=== PATIENT | male | born 1970 | race Caucasian/White ===

== ENCOUNTER 2024-02-26 12:47 | Emergency (ER) | payer OTHER, SELFPAY ==
[2024-02-26] VITALS (48 sets, daily range): BP systolic 97–132; BP diastolic 53–92; PULSE 42–93; RESP 20; TEMP 36.5; O2SAT 89–100; BMI 24.2
--- NOTE | 2024-02-26 13:13 | CRLHL7_ITS ---
For Patients: As a result of the Century Cures Act, medical imaging exams and procedure reports are released immediately into your electronic medical record. You may view this report before your referring provider. If you have questions, please contact your health care provider. INDICATION: Headache, confusion. TECHNIQUE: CTA head with contrast bolus tracking, 3D angiographic rendering using maximum intensity projection (MIP) and images permanently archived. FINDINGS: There is normal opacification of the intracranial vasculature. There is no large vessel occlusion. No aneurysm is identified. IMPRESSION: Unremarkable head CTA. Please note that all CT scans at this facility use dose modulation, iterative reconstruction, and/or weight-based dosing when appropriate to reduce radiation dose to as low as reasonably achievable. Dictated by Song Guan MD @ 02/27/2024 5:52:48 AM (Electronically Signed)
--- NOTE | 2024-02-26 13:14 | CRLHL7_ITS ---
For Patients: As a result of the Century Cures Act, medical imaging exams and procedure reports are released immediately into your electronic medical record. You may view this report before your referring provider. If you have questions, please contact your health care provider. INDICATION: Headache. Confusion. COMPARISON: None available. TECHNIQUE: CT of the head without intravenous contrast. Please note that all CT scans at this facility use dose modulation, iterative reconstruction, and/or weight-based dosing when appropriate to reduce radiation dose to as low as reasonably achievable. FINDINGS: There is a subtle mass at the corticomedullary junction of the left inferior parietal lobule measuring approximately 2.4 cm transverse by 2.8 cm AP by 2.4 cm craniocaudad. This finding is associated with extensive associated vasogenic edema involving the left parieto-occipital lobes with positive mass effect (sulcal effacement). Minimal rightward midline shift of 2 mm. No significant associated enhancement of this lesion is seen on the subsequent CT angiogram of the head and neck. There is a 2nd lesion in the left centrum semiovale isoattenuating to simmons matter measuring approximately 10 mm in greatest axial dimension (5; 39). A 3rd lesion measuring approximately 11 mm in greatest axial dimension with associated vasogenic edema is noted at the corticomedullary junction of the right temporal lobe (5; 27). Incidental findings include mucosal thickening of the right frontal recess and bilateral maxillary sinuses. Leftward deviated nasal septum. Large bilateral anterior ethmoid Jacoby air cells. IMPRESSION: Multiple (3) intra-axial lesions representing malignant neoplastic disease until proven otherwise including a dominant left parietal mass with significant associated surrounding vasogenic edema and mass effect (2 mm rightward midline shift). No associated hemorrhage. No acute infarct. MRI of the brain with intravenous contrast is recommended for further characterization. Discussed with Dr. Thomas at 2:19 p.m. 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 Please note that all CT scans at this facility use dose modulation, iterative reconstruction, and/or weight-based dosing when appropriate to reduce radiation dose to as low as reasonably achievable. Dictated by Ángel Coker MD @ 02/26/2024 2:26:51 PM (Electronically Signed)
[2024-02-26 13:34] LABS: Basophils Percent Auto 0.3 % (0.0-3.0); Eosinophils Percent Auto 0.1 % (0.0-7.0); Hematocrit 39.1 % (37.0-53.0); Hemoglobin* 12.9 gm/dL (13.5-17.5); Immature Granulocytes Pct Auto 0.1 %; Lymphocytes Percent Auto 12.5 % (20-44); Mean Corpuscular HGB Conc 33 gm/dL (32-36); Mean Corpuscular Hemoglobin 30 pg (26-34); Mean Corpuscular Volume 92 fL (80-100); Monocytes Percent Auto 7.4 % (0.0-11.0); Neutrophils Percent Auto 79.6 % (42.0-72.0); Platelet Count* 339 K/uL (140-440); Red Blood Count 4.24 m/uL (4.30-5.90); White Blood Count* 14.74 K/uL (4.50-11.00)
[2024-02-26 13:38] LABS: Slide Review Reflex No
--- NOTE | 2024-02-26 13:40 | ED.GENADULT ---
HPI - General Adult General Date Seen: 02/26/24 <Rima Gottlieb MD - Last Filed: 03/06/24 16:30> Chief complaint: Altered Mental Status <Riam Gottlieb MD - Last Filed: 03/06/24 16:30> Stated complaint: Dizziness, headache, confusion <Rima Gottlieb MD - Last Filed: 03/06/24 16:30> Time Seen by Provider: 02/26/24 12:49 <Rima Gottlieb MD - Last Filed: 03/06/24 16:30> History of Present Illness HPI narrative: Patient is a 53-year-old male here with his son for evaluation of head pressure and confusion. He notes headache for perhaps 3 or 4 days, says it waxes and wanes but has never been completely gone. He has had nausea without vomiting, headache is perhaps a little more on the left side than the right, he has attributed this to possible sinus infection because the last time he had a headache it was a sinus infection. He presented to urgent care 1st and was referred here due to some confusion. Some questions he seems to answer kind of slowly, his son notes that he was not able to remember the alarm code for his home, was not able to tell him the date or his age at urgent care which is very unusual for him. He does note some visual symptoms a couple of days ago which he says a resolved, initially said that was double vision, then said he was not quite sure, he could not remember. He has felt a little bit dizzy, no falls. He has not been to a doctor in years but denies any prior medical history. He smokes cigarettes, does smoke marijuana including age day. Denies alcohol use. No prescription medications. <Rima Gottlieb MD - Last Filed: 03/06/24 16:30> Related Data Home medications: Home Medications ?Medication ?Instructions ?Recorded ?Confirmed No Known Home Medications 02/26/24 02/26/24 <Rima Gottlieb MD - Last Filed: 03/06/24 16:30> Allergies/adverse reactions: Allergies Allergy/AdvReac Type Severity Reaction Status Date / Time No Known Drug Allergies Allergy Verified 02/26/24 13:59 <Rima Gottlieb MD - Last Filed: 03/06/24 16:30> Review of Systems Status of ROS: Reports: 10 or more systems reviewed and unremarkable except as noted in History and below <Rima Gottlieb MD - Last Filed: 03/06/24 16:30> [facility] Social History: Social History Smoking Status: Current every day smoker What tobacco products do you use: cigarettes Do you use any of these nicotine containing products: None Second hand tobacco smoke exposure: No Non-prescribed substance use: marijuana (any form) <Rima Gottlieb MD - Last Filed: 03/06/24 16:30> Exam Narrative: Exam Narrative: Vital signs reviewed In general, alert, nontoxic middle-age male. Head: Normocephalic, atraumatic. Eyes: Sclera clear. Pupils equal and reactive. Extraocular movements are full, no nystagmus. ENT: Mucous membranes moist. Tongue is midline, throat normal. Neck: Supple without adenopathy. No meningeal signs. Heart: Regular rate and rhythm without murmur. Lungs: Clear. No increased work of breathing, crackles or wheezes. Abdomen: Soft, nontender to palpation. Extremities: Well perfused, pulses intact. No significant edema. Neurologic: Alert, conversant. Speech is sometimes fluent, sometimes he takes a long time to find the word he wants and sometimes is not able to come up with it. He is oriented to person and place, was not able to tell me his age or the year. Was able to tell me his son's name. Face is symmetric. Moves all extremities equally. Tried to assess for ataxia, he was not able to seemingly follow the command to touch the tip of his nose, he would simply wiggle his index finger without moving it toward his face. I had him try with his eyes open, and then he pulled his hand toward the middle of his chest. Romberg negative. Gait slightly unsteady Skin: Warm, dry well perfused. Affect: Flat. <Rima Gottlieb MD - Last Filed: 03/06/24 16:30> Const: Vital Signs, click to edit/add: Vital Signs - 24 hr 02/26/24 12:52 02/26/24 13:51 02/26/24 14:00 Temperature 97.7 F Pulse Rate 75 Pulse Rate [Pulse Oximeter] 78 Respiratory Rate 20 Blood Pressure 120/84 Blood Pressure [Ri ght Upper Arm] 109/69 Pulse Oximetry 99 89 99 Oxygen Delivery Me thod Room Air 02/26/24 14:01 02/26/24 14:02 02/26/24 14:03 Temperature Pulse Rate 84 77 73 Pulse Rate [Pulse Oximeter] Respiratory Rate Blood Pressure 112/68 Blood Pressure [Ri ght Upper Arm] Pulse Oximetry 95 99 98 Oxygen Delivery Me thod 02/26/24 14:17 02/26/24 15:58 02/26/24 15:59 Temperature Pulse Rate 82 80 Pulse Rate [Pulse Oximeter] Respiratory Rate Blood Pressure 120/79 111/67 Blood Pressure [Ri ght Upper Arm] Pulse Oximetry 100 98 Oxygen Delivery Me thod 02/26/24 16:00 02/26/24 16:10 02/26/24 16:15 Temperature Pulse Rate 66 85 93 Pulse Rate [Pulse Oximeter] Respiratory Rate Blood Pressure 108/67 Blood Pressure [Ri ght Upper Arm] Pulse Oximetry 98 98 97 Oxygen Delivery Me thod 02/26/24 16:16 02/26/24 16:17 02/26/24 16:30 Temperature Pulse Rate 71 72 75 Pulse Rate [Pulse Oximeter] Respiratory Rate Blood Pressure 112/74 Blood Pressure [Ri ght Upper Arm] Pulse Oximetry 97 96 94 Oxygen Delivery Me thod 02/26/24 16:31 02/26/24 16:47 02/26/24 17:06 Temperature Pulse Rate 68 57 L Pulse Rate [Pulse Oximeter] Respiratory Rate Blood Pressure 117/74 108/70 Blood Pressure [Ri ght Upper Arm] Pulse Oximetry 95 100 Oxygen Delivery Me thod 02/26/24 17:07 02/26/24 17:07 02/26/24 17:15 Temperature Pulse Rate 56 L 56 L 49 L Pulse Rate [Pulse Oximeter] Respiratory Rate Blood Pressure 132/92 H 132/92 H Blood Pressure [Ri ght Upper Arm] Pulse Oximetry 99 99 89 Oxygen Delivery Me thod 02/26/24 17:17 02/26/24 17:30 02/26/24 17:32 Temperature Pulse Rate 51 L 52 L 46 L Pulse Rate [Pulse Oximeter] Respiratory Rate Blood Pressure 118/68 97/53 L Blood Pressure [Ri ght Upper Arm] Pulse Oximetry 91 93 91 Oxygen Delivery Me thod 02/26/24 17:47 02/26/24 18:01 02/26/24 18:03 Temperature Pulse Rate 47 L 42 L Pulse Rate [Pulse Oximeter] Respiratory Rate Blood Pressure 108/67 105/59 L Blood Pressure [Ri ght Upper Arm] Pulse Oximetry 96 94 Oxygen Delivery Me thod 02/26/24 18:15 02/26/24 18:17 02/26/24 18:32 Temperature Pulse Rate 43 L 45 L Pulse Rate [Pulse Oximeter] Respiratory Rate Blood Pressure 108/59 L 113/72 Blood Pressure [Ri ght Upper Arm] Pulse Oximetry 93 94 Oxygen Delivery Me thod 02/26/24 18:37 02/26/24 18:45 02/26/24 18:47 Temperature Pulse Rate 47 L 46 L 49 L Pulse Rate [Pulse Oximeter] Respiratory Rate Blood Pressure 112/76 Blood Pressure [Ri ght Upper Arm] Pulse Oximetry 97 96 96 Oxygen Delivery Me thod 02/26/24 19:01 02/26/24 19:02 02/26/24 19:15 Temperature Pulse Rate 42 L 48 L 48 L Pulse Rate [Pulse Oximeter] Respiratory Rate Blood Pressure 113/76 Blood Pressure [Ri ght Upper Arm] Pulse Oximetry 99 94 96 Oxygen Delivery Me thod 02/26/24 19:17 02/26/24 19:30 02/26/24 19:32 Temperature Pulse Rate 45 L 47 L 49 L Pulse Rate [Pulse Oximeter] Respiratory Rate Blood Pressure 105/75 110/66 Blood Pressure [Ri ght Upper Arm] Pulse Oximetry 94 96 95 Oxygen Delivery Me thod 02/26/24 19:45 02/26/24 19:47 Temperature Pulse Rate 49 L 49 L Pulse Rate [Pulse Oximeter] Respiratory Rate Blood Pressure 109/73 Blood Pressure [Ri ght Upper Arm] Pulse Oximetry 96 94 Oxygen Delivery Me thod <Rima Gottlieb MD - Last Filed: 03/06/24 16:30> Vital Signs, click to edit/add: Vital Signs - 24 hr 02/26/24 12:52 02/26/24 13:51 02/26/24 14:00 Temperature 97.7 F Pulse Rate 75 Pulse Rate [Pulse Oximeter] 78 Respiratory Rate 20 Blood Pressure 120/84 Blood Pressure [Ri ght Upper Arm] 109/69 Pulse Oximetry 99 89 99 Oxygen Delivery Me thod Room Air 02/26/24 14:01 02/26/24 14:02 02/26/24 14:03 Temperature Pulse Rate 84 77 73 Pulse Rate [Pulse Oximeter] Respiratory Rate Blood Pressure 112/68 Blood Pressure [Ri ght Upper Arm] Pulse Oximetry 95 99 98 Oxygen Delivery Me thod 02/26/24 14:17 02/26/24 15:58 02/26/24 15:59 Temperature Pulse Rate 82 80 Pulse Rate [Pulse Oximeter] Respiratory Rate Blood Pressure 120/79 111/67 Blood Pressure [Ri ght Upper Arm] Pulse Oximetry 100 98 Oxygen Delivery Me thod 02/26/24 16:00 02/26/24 16:10 02/26/24 16:15 Temperature Pulse Rate 66 85 93 Pulse Rate [Pulse Oximeter] Respiratory Rate Blood Pressure 108/67 Blood Pressure [Ri ght Upper Arm] Pulse Oximetry 98 98 97 Oxygen Delivery Me thod 02/26/24 16:16 02/26/24 16:17 02/26/24 16:30 Temperature Pulse Rate 71 72 75 Pulse Rate [Pulse Oximeter] Respiratory Rate Blood Pressure 112/74 Blood Pressure [Ri ght Upper Arm] Pulse Oximetry 97 96 94 Oxygen Delivery Me thod 02/26/24 16:31 02/26/24 16:47 02/26/24 17:06 Temperature Pulse Rate 68 57 L Pulse Rate [Pulse Oximeter] Respiratory Rate Blood Pressure 117/74 108/70 Blood Pressure [Ri ght Upper Arm] Pulse Oximetry 95 100 Oxygen Delivery Me thod 02/26/24 17:07 02/26/24 17:07 02/26/24 17:15 Temperature Pulse Rate 56 L 56 L 49 L Pulse Rate [Pulse Oximeter] Respiratory Rate Blood Pressure 132/92 H 132/92 H Blood Pressure [Ri ght Upper Arm] Pulse Oximetry 99 99 89 Oxygen Delivery Me thod 02/26/24 17:17 02/26/24 17:30 02/26/24 17:32 Temperature Pulse Rate 51 L 52 L 46 L Pulse Rate [Pulse Oximeter] Respiratory Rate Blood Pressure 118/68 97/53 L Blood Pressure [Ri ght Upper Arm] Pulse Oximetry 91 93 91 Oxygen Delivery Me thod 02/26/24 17:47 02/26/24 18:01 02/26/24 18:03 Temperature Pulse Rate 47 L 42 L Pulse Rate [Pulse Oximeter] Respiratory Rate Blood Pressure 108/67 105/59 L Blood Pressure [Ri ght Upper Arm] Pulse Oximetry 96 94 Oxygen Delivery Me thod 02/26/24 18:15 02/26/24 18:17 02/26/24 18:32 Temperature Pulse Rate 43 L 45 L Pulse Rate [Pulse Oximeter] Respiratory Rate Blood Pressure 108/59 L 113/72 Blood Pressure [Ri ght Upper Arm] Pulse Oximetry 93 94 Oxygen Delivery Me thod 02/26/24 18:37 02/26/24 18:45 02/26/24 18:47 Temperature Pulse Rate 47 L 46 L 49 L Pulse Rate [Pulse Oximeter] Respiratory Rate Blood Pressure 112/76 Blood Pressure [Ri ght Upper Arm] Pulse Oximetry 97 96 96 Oxygen Delivery Me thod 02/26/24 19:01 02/26/24 19:02 02/26/24 19:15 Temperature Pulse Rate 42 L 48 L 48 L Pulse Rate [Pulse Oximeter] Respiratory Rate Blood Pressure 113/76 Blood Pressure [Ri ght Upper Arm] Pulse Oximetry 99 94 96 Oxygen Delivery Me thod 02/26/24 19:17 02/26/24 19:30 02/26/24 19:32 Temperature Pulse Rate 45 L 47 L 49 L Pulse Rate [Pulse Oximeter] Respiratory Rate Blood Pressure 105/75 110/66 Blood Pressure [Ri ght Upper Arm] Pulse Oximetry 94 96 95 Oxygen Delivery Me thod 02/26/24 19:45 02/26/24 19:47 Temperature Pulse Rate 49 L 49 L Pulse Rate [Pulse Oximeter] Respiratory Rate Blood Pressure 109/73 Blood Pressure [Ri ght Upper Arm] Pulse Oximetry 96 94 Oxygen Delivery Me thod <Ivan Barrios, DO - Last Filed: 02/26/24 20:10> Course Course ED Course: Patient presents with new onset he headache of a few days duration with some subtle findings on neurologic exam. Diagnostic considerations would include intracranial hemorrhage, mass, stroke, infection. Doubt sinus infection as an explanation for his presentation. Labs reviewed. Pertinent findings include a white blood cell count of 14.7, sed rate of 62, CRP of 2.3. CT of the head by my review showed what appeared to be edema, little bit of mass effect in the left occipital region. CT of the head read by radiology as showing edema, mass suspected, MRI recommended. The MR angiogram of the head and neck was read by Radiology. Vasculature looks unremarkable, they do note a nodule in the left upper lobe, follow-up CT of the chest required, not done here today. MRI of the brain read by Radiology as showing 4 discrete areas, rim enhancing, consistent with abscess. He did note increasing headache while here, was initially given morphine and Zofran. Did not have a lot of relief with that so I have given him Dilaudid 1 mg IV. All labs reviewed, remaining labs are unremarkable. Initial phone call was to Neurosurgery with [facility], they recommended transfer, did not recommend delay for bed wait list, [facility] did not have any beds. I called [facility], [facility] as well as [facility]. [facility] reviewed but declined as they did not have room on their neurology service. [facility] does seemingly have a bed, case discussed with neurosurgery team there. Images being reviewed, if accepted there will arrange for transport on assignment of bed. In the meantime, per Annamarie recommendations, I have not instituted antibiotics. <Rima Gottlieb MD - Last Filed: 03/06/24 16:30> Vital Signs Vital signs: Initial Vital Signs Temperature 97.7 F 02/26/24 12:52 Temperature Source Temporal Artery Scan 02/26/24 12:52 Pulse Rate 78 02/26/24 12:52 Respiratory Rate 02/26/24 12:52 Blood Pressure 109/69 02/26/24 12:52 Blood Pressure Mean 82 02/26/24 12:52 Blood Pressure Position Sitting 02/26/24 12:52 Pulse Oximetry 99 02/26/24 12:52 Oxygen Delivery Method Room Air 02/26/24 12:52 Vital Signs Temperature 97.7 F 02/26/24 12:52 Pulse Rate 78 02/26/24 12:52 Respiratory Rate 20 02/26/24 12:52 Blood Pressure 109/69 02/26/24 12:52 Pulse Oximetry 99 02/26/24 12:52 Oxygen Delivery Method Room Air 02/26/24 12:52 Temperature 97.7 F 02/26/24 12:52 Pulse Rate 51 L 02/26/24 20:32 Respiratory Rate 20 02/26/24 12:52 Blood Pressure 110/74 02/26/24 20:32 Pulse Oximetry 96 02/26/24 20:32 Oxygen Delivery Method Room Air 02/26/24 12:52 <Rima Gottlieb MD - Last Filed: 03/06/24 16:30> Initial Vital Signs Temperature 97.7 F 02/26/24 12:52 Temperature Source Temporal Artery Scan 02/26/24 12:52 Pulse Rate 78 02/26/24 12:52 Respiratory Rate 20 02/26/24 12:52 Blood Pressure 109/69 02/26/24 12:52 Blood Pressure Mean 82 02/26/24 12:52 Blood Pressure Position Sitting 02/26/24 12:52 Pulse Oximetry 99 02/26/24 12:52 Oxygen Delivery Method Room Air 02/26/24 12:52 Vital Signs Temperature 97.7 F 02/26/24 12:52 Pulse Rate 78 02/26/24 12:52 Respiratory Rate 20 02/26/24 12:52 Blood Pressure 109/69 02/26/24 12:52 Pulse Oximetry 99 02/26/24 12:52 Oxygen Delivery Method Room Air 02/26/24 12:52 Temperature 97.7 F 02/26/24 12:52 Pulse Rate 51 L 02/26/24 20:32 Respiratory Rate 20 02/26/24 12:52 Blood Pressure 110/74 02/26/24 20:32 Pulse Oximetry 96 02/26/24 20:32 Oxygen Delivery Method Room Air 02/26/24 12:52 <Ivan Barrios DO - Last Filed: 02/26/24 20:10> Medications Administered Medications: Discontinued Medications Generic Name Dose Route Start Last Admin Trade Name Opal PRN Reason Stop Dose Admin Hydromorphone HCl 1 mg 02/26/24 16:57 02/26/24 17:05 Hydromorphone 0.5 Mg/0.5 Ml Inj IVP 02/26/24 16:58 1 mg ONCE ONE Administration Hydromorphone HCl 0.5 mg 02/26/24 20:39 02/26/24 20:43 Hydromorphone 0.5 Mg/0.5 Ml Inj IVP 02/26/24 20:40 0.5 mg ONCE ONE Administration Morphine Sulfate 4 mg 02/26/24 15:09 02/26/24 16:07 Morphine 4 Mg/Ml Inj IVP 02/26/24 15:10 4 mg ONCE ONE Administration Ondansetron HCl 4 mg 02/26/24 15:09 02/26/24 16:05 Ondansetron 2 Mg/Ml Inj IVP 02/26/24 15:10 4 mg ONCE ONE Administration <Rima Gottlieb MD - Last Filed: 03/06/24 16:30> Discontinued Medications Generic Name Dose Route Start Last Admin Trade Name Opal PRN Reason Stop Dose Admin Hydromorphone HCl 1 mg 02/26/24 16:57 02/26/24 17:05 Hydromorphone 0.5 Mg/0.5 Ml Inj IVP 02/26/24 16:58 1 mg ONCE ONE Administration Hydromorphone HCl 0.5 mg 02/26/24 20:39 02/26/24 20:43 Hydromorphone 0.5 Mg/0.5 Ml Inj IVP 02/26/24 20:40 0.5 mg ONCE ONE Administration Morphine Sulfate 4 mg 02/26/24 15:09 02/26/24 16:07 Morphine 4 Mg/Ml Inj IVP 02/26/24 15:10 4 mg ONCE ONE Administration Ondansetron HCl 4 mg 02/26/24 15:09 02/26/24 16:05 Ondansetron 2 Mg/Ml Inj IVP 02/26/24 15:10 4 mg ONCE ONE Administration <Ivan Barrios DO - Last Filed: 02/26/24 20:10> Medical Decision Making MDM Narrative Medical decision making narrative: Patient was signed out to me pending acceptance by [facility]. I spoke to Dr. Aguirre and she stepped the patient for admission. <Ivan Barrios DO - Last Filed: 02/26/24 20:10> Lab Data Labs: Lab Results 02/26/24 02/26/24 Range/Units 13:14 Unknown WBC 14.74 H (4.50-11.00) K/uL RBC 4.24 L (4.30-5.90) m/uL Hgb 12.9 L (13.5-17.5) gm/dL Hct 39.1 (37.0-53.0) % MCV 92 (80-100) fL MCH 30 (26-34) pg MCHC 33 (32-36) gm/dL RDW Coeff of Patricia 13.0 (11.5-15.5) % Plt Count 339 (140-440) K/uL Neut % (Auto) 79.6 H (42.0-72.0) % Lymph % (Auto) 12.5 L (20-44) % [place] % (Auto) 7.4 (0.0-11.0) % Eos % (Auto) 0.1 (0.0-7.0) % Baso % (Auto) 0.3 (0.0-3.0) % Neut # (Auto) 11.70 H (1.7-7.0) K/uL Lymph # (Auto) 1.80 (0.90-2.90) K/uL [place] # (Auto) 1.10 H (0.00-0.90) K/UL Eos # (Auto) 0.00 (0.00-0.50) K/uL Baso # (Auto) 0.00 (0.00-0.30) K/uL Abs Immat Gran (auto) 0.00 (0.00-0.30) K/uL Imm/Tot Granulo (auto) 0.1 % ESR 62 H (2-15) mm/hr INR 1.01 (0.91-1.10) APTT 35 H (23-33) Seconds D-Dimer Quant (PE/DVT) 0.44 (0.00-0.50) ug/ml Sodium 136 (135-149) mmol/L Potassium 4.2 (3.6-5.1) mmol/L Chloride 100 (96-114) mmol/L Carbon Dioxide 28 (20-32) mmol/L Anion Gap 8 (7-15) mEq/L BUN 10 (7-30) mg/dL Creatinine 0.7 (0.5-1.5) mg/dL Estimated Creat Clear 107.60 Estimated GFR 109 ml/min Glucose 106 (60-115) mg/dL Calcium 9.1 (8.4-10.6) mg/dL Magnesium 2.0 (1.5-2.6) mg/dL Total Bilirubin 0.4 (0.1-1.5) mg/dL Direct Bilirubin 0.3 (0.0-0.5) mg/dL AST 20 (12-35) U/L ALT 16 (4-50) U/L Alkaline Phosphatase 65 (40-150) U/L C-Reactive Protein 2.3 H (0.5-1.0) mg/dL Total Protein 7.7 (6.0-8.3) g/dL Albumin 3.9 (3.3-5.0) g/dL TSH 0.147 L (0.270-4.200) uIU/mL Free T4 1.79 (0.70-1.85) ng/dL <Rima Gottlieb MD - Last Filed: 03/06/24 16:30> Lab Results 02/26/24 02/26/24 Range/Units 13:14 Unknown WBC 14.74 H (4.50-11.00) K/uL RBC 4.24 L (4.30-5.90) m/uL Hgb 12.9 L (13.5-17.5) gm/dL Hct 39.1 (37.0-53.0) % MCV 92 (80-100) fL MCH 30 (26-34) pg MCHC 33 (32-36) gm/dL RDW Coeff of Patricia 13.0 (11.5-15.5) % Plt Count 339 (140-440) K/uL Neut % (Auto) 79.6 H (42.0-72.0) % Lymph % (Auto) 12.5 L (20-44) % [place] % (Auto) 7.4 (0.0-11.0) % Eos % (Auto) 0.1 (0.0-7.0) % Baso % (Auto) 0.3 (0.0-3.0) % Neut # (Auto) 11.70 H (1.7-7.0) K/uL Lymph # (Auto) 1.80 (0.90-2.90) K/uL [place] # (Auto) 1.10 H (0.00-0.90) K/UL Eos # (Auto) 0.00 (0.00-0.50) K/uL Baso # (Auto) 0.00 (0.00-0.30) K/uL Abs Immat Gran (auto) 0.00 (0.00-0.30) K/uL Imm/Tot Granulo (auto) 0.1 % ESR 62 H (2-15) mm/hr INR 1.01 (0.91-1.10) APTT 35 H (23-33) Seconds D-Dimer Quant (PE/DVT) 0.44 (0.00-0.50) ug/ml Sodium 136 (135-149) mmol/L Potassium 4.2 (3.6-5.1) mmol/L Chloride 100 (96-114) mmol/L Carbon Dioxide 28 (20-32) mmol/L Anion Gap 8 (7-15) mEq/L BUN 10 (7-30) mg/dL Creatinine 0.7 (0.5-1.5) mg/dL Estimated Creat Clear 107.60 Estimated GFR 109 ml/min Glucose 106 (60-115) mg/dL Calcium 9.1 (8.4-10.6) mg/dL Magnesium 2.0 (1.5-2.6) mg/dL Total Bilirubin 0.4 (0.1-1.5) mg/dL Direct Bilirubin 0.3 (0.0-0.5) mg/dL AST 20 (12-35) U/L ALT 16 (4-50) U/L Alkaline Phosphatase 65 (40-150) U/L C-Reactive Protein 2.3 H (0.5-1.0) mg/dL Total Protein 7.7 (6.0-8.3) g/dL Albumin 3.9 (3.3-5.0) g/dL TSH 0.147 L (0.270-4.200) uIU/mL Free T4 1.79 (0.70-1.85) ng/dL <Ivan Barrios DO - Last Filed: 02/26/24 20:10> Imaging Data CT scan - head: Attestation: I have reviewed the pertinent imaging results. <Rima Gottlieb MD - Last Filed: 03/06/24 16:30> Radiologist's impression: Patient: Priti Morales MR#: [id number] : 1970 Acct:[id number] Loc: ED Service Date: 02/26/[address]: Ordering Physician: Rima Gottlieb M.D. Date of Service: 02/26/24 Procedure(s): CT head/brain wo con Accession Number(s): [id number] cc: Rima Gottlieb M.D.; Provider,Not a Local~ For Patients: As a result of the 21st Century Cures Act, medical imaging exams and procedure reports are released immediately into your electronic medical record. You may view this report before your referring provider. If you have questions, please contact your health care provider. INDICATION: Headache. Confusion. COMPARISON: None available. TECHNIQUE: CT of the head without intravenous contrast. Please note that all CT scans at this facility use dose modulation, iterative reconstruction, and/or weight-based dosing when appropriate to reduce radiation dose to as low as reasonably achievable. FINDINGS: There is a subtle mass at the corticomedullary junction of the left inferior parietal lobule measuring approximately 2.4 cm transverse by 2.8 cm AP by 2.4 cm craniocaudad. This finding is associated with extensive associated vasogenic edema involving the left parieto-occipital lobes with positive mass effect (sulcal effacement). Minimal rightward midline shift of 2 mm. No significant associated enhancement of this lesion is seen on the subsequent CT angiogram of the head and neck. There is a 2nd lesion in the left centrum semiovale isoattenuating to simmons matter measuring approximately 10 mm in greatest axial dimension (5; 39). A 3rd lesion measuring approximately 11 mm in greatest axial dimension with associated vasogenic edema is noted at the corticomedullary junction of the right temporal lobe (5; 27). Incidental findings include mucosal thickening of the right frontal recess and bilateral maxillary sinuses. Leftward deviated nasal septum. Large bilateral anterior ethmoid Jacoby air cells. IMPRESSION: Multiple (3) intra-axial lesions representing malignant neoplastic disease until proven otherwise including a dominant left parietal mass with significant associated surrounding vasogenic edema and mass effect (2 mm rightward midline shift). No associated hemorrhage. No acute infarct. MRI of the brain with intravenous contrast is recommended for further characterization. Discussed with Dr. Gottlieb at 2:19 p.m. TECHNICAL SUPERVISOR. Please note that all CT scans at this facility use dose modulation, iterative reconstruction, and/or weight-based dosing when appropriate to reduce radiation dose to as low as reasonably achievable. Dictated by Ángel Coker MD @ 02/26/2024 2:26:51 PM <Rima Gottlieb MD - Last Filed: 03/06/24 16:30> CT angiogram head and neck: Attestation: I have reviewed the pertinent imaging results. <Rima Gottlieb MD - Last Filed: 03/06/24 16:30> Radiologist's impression: Patient: PRITI MORALES Facility: [facility] Site . Site : 1970 Study: CT-Head Angio 95CC ISOVUE 370-02/26/2024 1:57:41 PM Ordering Physician: Martha Abarac Preliminary Report: INDICATION: Headache. Confusion. COMPARISON: Same day noncontrast head CT. PRELIMINARY FINDINGS: 1. CTA HEAD: No intracranial large vessel occlusion. 2. CTA NECK: No cervical carotid or vertebral artery occlusion, significant stenosis or sign of dissection. 3. From the report of the preceding noncontrast CT of the head performed the same day: Multiple (3) intra-axial lesions representing malignant neoplastic disease until proven otherwise including a dominant left parietal mass with significant associated surrounding vasogenic edema and mass effect (2 mm rightward midline shift). No associated hemorrhage. No acute infarct. MRI of the brain with intravenous contrast is recommended for further characterization. 4. No significant enhancement is associated with these lesions on this CT angiogram. 5. 8 mm x 13 mm irregular juxtapleural left upper lobe nodule (8; 1003) with surrounding gland glass opacity. Neoplastic disease is included in the differential diagnosis for this finding. Management recommendations include PET-CT, according to Fleischner society guidelines. A form CT of the chest is recommended for further characterization which can be performed at a clinically appropriate time. Discussed with Dr. Gottlieb at 2:19 p.m. TECHNICAL SUPERVISOR. THIS IS A PRELIMINARY REPORT. FINAL REPORT TO BE ISSUED BY THE NEURORADIOLOGY SUBSPECIALITY SECTION OF THE DEPARTMENT. Dictated by Ángel Coker MD @ 02/26/2024 2:32:27 PM Read by: Ángel Coker MD @02/26/2024 2:32:38 PM <Rima Gottlieb MD - Last Filed: 03/06/24 16:30> MRI brain with without contrast: Attestation: I have reviewed the pertinent imaging results. <Rima Gottlieb MD - Last Filed: 03/06/24 16:30> Radiologist's impression: Patient: Priti Morales MR#: [id number] : 1970 Acct:[id number] Loc: ED Service Date: 02/26/[address]: Ordering Physician: Rima Gottlieb M.D. Date of Service: 02/26/24 Procedure(s): MR head/brain wo/w con Accession Number(s): [id number] cc: Rima Gottlieb M.D.; Provider,Not a Local~ For Patients: As a result of the Cures Act, medical imaging exams and procedure reports are released immediately into your electronic medical record. You may view this report before your referring provider. If you have questions, please contact your health care provider. Indication: Suspected left parietal mass Technique: Multiplanar, multisequence MRI of the brain obtained without and with contrast. A total of 14 mL of Dotarem IV contrast was administered. Comparison: Earlier same day CT head Findings: There are multiple rim-enhancing, diffusion-restricting collections within the bilateral cerebral hemispheres, 2 dominant collections measuring greater than 3 cm in the left occipital lobe, 2 smaller roughly 2 cm collections within the left occipital and right posterior temporal lobe, and the smaller collection at the left posterior frontal-parietal junction. There is confluent surrounding vasogenic edema, with diffuse left mid and posterior cerebral sulcal effacement, as well as partial effacement of the posterior left lateral ventricle, and mild rightward midline shift of 3-4 mm. No territorial infarct or T1 hyperintense hemorrhage. No evidence for obstructive hydrocephalus at this time. No herniation. Scattered paranasal sinus mucosal inflammatory changes. No mastoid effusion. Unremarkable orbits. Impression: 1. Multiple rim enhancing, diffusion restricting collections within the bilateral posterior cerebral hemispheres, most compatible with cerebral abscesses. Exam findings were discussed with Dr. Rima gottlieb at 4:43 p.m. on 02/26/2024. Dictated by Matilda Bellamy MD @ 02/26/2024 4:46:19 PM <Rima Gottlieb MD - Last Filed: 03/06/24 16:30> Discharge Plan Discharge Clinical Impression: Brain abscess <Rima Gottlieb MD - Last Filed: 03/06/24 16:30> Patient Disposition: Xfer Other <Rima Gottlieb MD - Last Filed: 03/06/24 16:30> Prescriptions: No Action No Known Home Medications <Rima Gottlieb MD - Last Filed: 03/06/24 16:30> Stand Alone Forms: MyHealth Info Instructions <Rima Gottlieb MD - Last Filed: 03/06/24 16:30>
--- NOTE | 2024-02-26 13:45 | CRLHL7_ITS ---
For Patients: As a result of the Century Cures Act, medical imaging exams and procedure reports are released immediately into your electronic medical record. You may view this report before your referring provider. If you have questions, please contact your health care provider. INDICATION: Headache, confusion. TECHNIQUE: CTA neck with contrast bolus tracking, 3D angiographic rendering using maximum intensity projection (MIP) and images permanently archived. FINDINGS: There is no significant carotid artery stenosis or dissection. There is no significant vertebral artery stenosis or dissection. The soft tissues of the neck are within normal limits. The cervical spine is in normal alignment. Degenerative changes are noted in the cervical spine. IMPRESSION: 1. No significant carotid or vertebral artery stenosis or dissection. 2. Per preliminary report: 3. From the report of the preceding noncontrast CT of the head performed the same day: Multiple (3) intra-axial lesions representing malignant neoplastic disease until proven otherwise including a dominant left parietal mass with significant associated surrounding vasogenic edema and mass effect (2 mm rightward midline shift). No associated hemorrhage. No acute infarct. MRI of the brain with intravenous contrast is recommended for further characterization. 4. No significant enhancement is associated with these lesions on this CT angiogram. 5. 8 mm x 13 mm irregular juxtapleural left upper lobe nodule (8; 1003) with surrounding gland glass opacity. Neoplastic disease is included in the differential diagnosis for this finding. Management recommendations include PET-CT, according to Fleischner society guidelines. A form CT of the chest is recommended for further characterization which can be performed at a clinically appropriate time. Discussed with Dr. Thomas at 2:19 p.m. [employer]. Please note that all CT scans at this facility use dose modulation, iterative reconstruction, and/or weight-based dosing when appropriate to reduce radiation dose to as low as reasonably achievable. Dictated by Song Guan MD @ 02/27/2024 5:55:02 AM (Electronically Signed)
[2024-02-26 13:54] LABS: Chloride* 100 mmol/L (96-114); Potassium* 4.2 mmol/L (3.6-5.1); Sodium* 136 mmol/L (135-149)
[2024-02-26 13:55] LABS: Albumin* 3.9 g/dL (3.3-5.0)
[2024-02-26 13:57] LABS: Anion Gap 8 mEq/L (7-15); Blood Urea Nitrogen* 10 mg/dL (7-30); Carbon Dioxide* 28 mmol/L (20-32); Creatinine* 0.7 mg/dL (0.5-1.5); Estimated Glomerular Filt Rate 109 ml/min; Glucose* 106 mg/dL (60-115)
[2024-02-26 13:58] LABS: Alanine Aminotransferase* 16 U/L (4-50); Alkaline Phosphatase* 65 U/L (40-150); Aspartate Amino Transferase* 20 U/L (12-35); Bilirubin Direct* 0.3 mg/dL (0.0-0.5); Bilirubin Total* 0.4 mg/dL (0.1-1.5); Calcium* 9.1 mg/dL (8.4-10.6); Total Protein* 7.7 g/dL (6.0-8.3)
[2024-02-26 14:00] LABS: C Reactive Protein* 2.3 mg/dL (0.5-1.0)
[2024-02-26 14:04] LABS: D Dimer Quantitative* 0.44 ug/ml (0.00-0.50)
[2024-02-26 14:22] LABS: Erythrocyte SedimentationRate* 62 mm/hr (2-15)
--- NOTE | 2024-02-26 14:22 | CRLHL7_ITS ---
For Patients: As a result of the Century Cures Act, medical imaging exams and procedure reports are released immediately into your electronic medical record. You may view this report before your referring provider. If you have questions, please contact your health care provider. Indication: Suspected left parietal mass Technique: Multiplanar, multisequence MRI of the brain obtained without and with contrast. A total of 14 mL of Dotarem IV contrast was administered. Comparison: Earlier same day CT head Findings: There are multiple rim-enhancing, diffusion-restricting collections within the bilateral cerebral hemispheres, 2 dominant collections measuring greater than 3 cm in the left occipital lobe, 2 smaller roughly 2 cm collections within the left occipital and right posterior temporal lobe, and the smaller collection at the left posterior frontal-parietal junction. There is confluent surrounding vasogenic edema, with diffuse left mid and posterior cerebral sulcal effacement, as well as partial effacement of the posterior left lateral ventricle, and mild rightward midline shift of 3-4 mm. No territorial infarct or T1 hyperintense hemorrhage. No evidence for obstructive hydrocephalus at this time. No herniation. Scattered paranasal sinus mucosal inflammatory changes. No mastoid effusion. Unremarkable orbits. Impression: 1. Multiple rim enhancing, diffusion restricting collections within the bilateral posterior cerebral hemispheres, most compatible with cerebral abscesses. Exam findings were discussed with Dr. Rima gottlieb at 4:43 p.m. on 02/26/2024. Dictated by Matilda Bellamy MD @ 02/26/2024 4:46:19 PM (Electronically Signed)
[2024-02-26 14:28] LABS: TSH With Reflex to FT4* 0.147 uIU/mL (0.270-4.200)
[2024-02-26] MEDS: ONDANSETRON 2 MG/ML inj 4 MG IVP (16:05)
[2024-02-26] MEDS: MORPHINE 4 MG/ML INJ IVP (16:07)
[2024-02-26 16:27] LABS: Free T4 Free Thyroxine* 1.79 ng/dL (0.70-1.85)
[2024-02-26] MEDS: HYDROmorphone 0.5 mg/0.5 ml inj 1 MG IVP (17:05)
[2024-02-26 17:32] LABS: INR 1.01 (0.91-1.10); Prothrombin Time 13.9 Seconds
[2024-02-26 17:33] LABS: Partial Thromboplastin Time* 35 Seconds (23-33)
[2024-02-26] MEDS: HYDROmorphone 0.5 mg/0.5 ml inj IVP (20:43)
== END 2024-02-26 20:59 | disposition other institution (70) ==
PROVIDERS: Emergency Medicine; Emergency Provider Student in an Organized Health Care Education/Training Program
DX: G06.0 Intracranial abscess and granuloma (principal)
CPT/HCPCS: 36415; 70450; 70496; 70498; 70553; 80048; 80076; 83735; 84439; 84443; 85025; 85379; 85610; 85651; 85730; 86140; 87040; 99284; 99285; A9575; J1171; J2270; J2405; Q9967

== ENCOUNTER 2024-02-26 20:37 | Outpatient (CLI) | payer OTHER, SELFPAY | END 2024-02-26 20:38 | disposition home or self-care (01) | LOC: AMB 03-15 23:29 | PROVIDERS: Visit Provider Emergency Medicine Emergency Medical Services | DX: G06.0 Intracranial abscess and granuloma (principal) | CPT/HCPCS: A0425; A0427 ==